=== PATIENT | female | born 1970 | race Two or more races ===

== ENCOUNTER 2017-08-19 22:59 | Inpatient (IN) | payer SELFPAY ==
[2017-08-20] MEDS: IV NORMAL SALINE 1000ML BAG 1,000 ML IV ×7 (00:22→04:26)
[2017-08-20 00:47] LABS: BILIRUBIN,URINE NEGATIVE (NEG); CLARITY,URINE CLEAR; COLOR,URINE RED; GLUCOSE,URINE NEGATIVE (NEG); NITRITE,URINE NEGATIVE (NEG); PROTEIN,URINE 100 mg/dL (NEG-TRACE)
[2017-08-20 00:55] LABS: BACTERIA,URINE FEW /HPF (0-FEW); HYALINE CASTS, URINE FEW /HPF; RBC,URINE TNTC /HPF (0-2); SQUAMOUS EPITHELIAL CELL,UR FEW /LPF
[2017-08-20 00:59] LABS: ADD MAN DIFF? NO
[2017-08-20 01:04] LABS: BASO % 0 % (0-3); EOS # 0.1 x10^3/uL (0.0-0.7); EOS % 1 % (0-3); HEMATOCRIT 38.6 % (36.0-47.0); HEMOGLOBIN 13.2 g/dL (12.0-15.5); LYMPH # 2.1 x10^3/uL (1.0-4.8); LYMPH % 20 % (24-48); MEAN CORPUSCULAR HEMOGLOBIN 30 pg (25-35); MEAN CORPUSCULAR HGB CONC 34 g/dL (31-37); MEAN CORPUSCULAR VOLUME 88 fL (79-100); MONO # 0.7 x10^3/uL (0.0-1.1); MONO % 7 % (0-9); NEUT # 7.6 x10^3uL (1.8-7.7); NEUT % 72 % (31-73); PLATELET COUNT 214 x10^3/uL (140-400); RED BLOOD COUNT 4.41 x10^6/uL (3.50-5.40); RED CELL DISTRIBUTION WIDTH 13.3 % (11.5-14.5); WHITE BLOOD COUNT 10.6 x10^3/uL (4.0-11.0)
[2017-08-20 01:16] LABS: ANION GAP 6 (6-14); BLOOD UREA NITROGEN 14 mg/dL (7-20); CALCIUM 8.3 mg/dL (8.5-10.1); CARBON DIOXIDE 28 mmol/L (21-32); CHLORIDE 106 mmol/L (98-107); CREATININE 0.7 mg/dL (0.6-1.0); GFR 90.5; GLUCOSE 113 mg/dL (70-99); SODIUM 140 mmol/L (136-145)
[2017-08-20 01:27] LABS: TROPONINI < 0.017 ng/mL (0.000-0.055)
[2017-08-20 01:31] LABS: THYROID STIM HORMONE (TSH) 1.911 uIU/mL (0.358-3.74)
[2017-08-20] MEDS: HYDROcodone/APAP 5/325MG 1 TAB TABLET PO (01:43)
[2017-08-20 07:30] LABS: TROPONINI < 0.017 ng/mL (0.000-0.055)
[2017-08-20 09:57] LABS: TROPONINI < 0.017 ng/mL (0.000-0.055)
[2017-08-20] MEDS: ONDANSETRON PF 4 MG/2 ML VIAL. IV (11:47)
[2017-08-20] MEDS: MORPHINE SULFATE 4 MG/ML DISP.SYRIN. IV (11:47)
[2017-08-20 11:49] LABS: CHOLESTEROL 129 mg/dL (0-200); HDLC 27 mg/dL (40-60); LDLC 83 mg/dL (0-100); NON-HDL CHOLESTEROL 102 mg/dL (0-129); TRIGLYCERIDES 94 mg/dL (0-150); VLDLC 19 mg/dL (0-40)
[2017-08-20 11:50] LABS: CHOLESTEROL/HDL RATIO 4.8
[2017-08-21] MEDS: HYDROcodone/APAP 5/325MG 1 TAB TABLET PO ×2 (00:43→16:22)
[2017-08-21 04:11] LABS: ADD MAN DIFF? NO
[2017-08-21 04:42] LABS: BASO % 1 % (0-3); EOS # 0.2 x10^3/uL (0.0-0.7); EOS % 2 % (0-3); HEMATOCRIT 36.3 % (36.0-47.0); HEMOGLOBIN 12.2 g/dL (12.0-15.5); LYMPH # 3.1 x10^3/uL (1.0-4.8); LYMPH % 40 % (24-48); MEAN CORPUSCULAR HEMOGLOBIN 30 pg (25-35); MEAN CORPUSCULAR HGB CONC 34 g/dL (31-37); MEAN CORPUSCULAR VOLUME 88 fL (79-100); MONO # 0.6 x10^3/uL (0.0-1.1); MONO % 8 % (0-9); NEUT # 3.8 x10^3uL (1.8-7.7); NEUT % 50 % (31-73); PLATELET COUNT 185 x10^3/uL (140-400); RED BLOOD COUNT 4.13 x10^6/uL (3.50-5.40); RED CELL DISTRIBUTION WIDTH 13.9 % (11.5-14.5); WHITE BLOOD COUNT 7.7 x10^3/uL (4.0-11.0)
[2017-08-21 04:48] LABS: ANION GAP 8 (6-14); BLOOD UREA NITROGEN 9 mg/dL (7-20); CALCIUM 8.7 mg/dL (8.5-10.1); CARBON DIOXIDE 25 mmol/L (21-32); CHLORIDE 107 mmol/L (98-107); CREATININE 0.6 mg/dL (0.6-1.0); GFR 108.1; GLUCOSE 109 mg/dL (70-99); POTASSIUM 3.6 mmol/L (3.5-5.1); SODIUM 140 mmol/L (136-145)
== END 2017-08-21 20:39 | disposition home or self-care (01) | DRG 563 ==
LOC: ER 22:59 → 4 NORTH 08-20 02:45
DX: S82.51XA Displaced fracture of medial malleolus of right tibia, initial encounter for closed fracture (principal); E66.9 Obesity, unspecified; S51.011A Laceration without foreign body of right elbow, initial encounter; I95.1 Orthostatic hypotension; S82.831A Other fracture of upper and lower end of right fibula, initial encounter for closed fracture; F17.210 Nicotine dependence, cigarettes, uncomplicated; W18.39XA Other fall on same level, initial encounter; Z68.37 Body mass index [BMI] 37.0-37.9, adult; Y93.89 Activity, other specified; Y92.89 Other specified places as the place of occurrence of the external cause; Y99.8 Other external cause status
CPT/HCPCS: 29515; 36415; 70450; 71045; 73590; 73610; 80048; 80061; 81001; 84443; 84484; 85025; 93005; 93306; 93880; 96360; 97116-GP; 99285; 99285-25; J2270; J2405; J7030

== ENCOUNTER 2019-01-04 22:35 | Emergency (ER) | payer SELFPAY ==
[~2019-01-04] VITALS: Ht 172.7 cm; Wt 99.8 kg
[~2019-01-04 22:35] MED LIST: IBUP-1027 PO; OXYC1TAB15 PO
[2019-01-04 23:20] VITALS: BP 153/84
[2019-01-05] MEDS ORDERED: CYCL10TA2 PO (00:25)
--- NOTE | 2019-01-05 00:26 | PHYS DOC ---
Past Medical History Past Medical History: No Pertinent History (MARIA L RENAE APRN) Past Surgical History: No Surgical History (MARIA L RENAE APRN) Alcohol Use: None Drug Use: None (MARIA L RENAE APRN) Adult General Chief Complaint Chief Complaint: LOWER EXT PAIN HPI HPI Patient is a 48 year old female, accompanied by her daughter, with complaints of left low back pain that increases with movement and shoots to her left buttock and thigh for the last week. PT denies any injury, saddle anesthesia, numbness, tingling, weakness, dysuria, or bowel/bladder incontinence. She rates the pain a 8/10 at rest and states the pain shoots to a 10 with movement. She has been taking diclofenac at home for the pain. (MARIA L RENAE APRN) Review of Systems Review of Systems Constitutional: Denies fever or chills [] Eyes: Denies change in visual acuity, redness, or eye pain [] HENT: Denies nasal congestion or sore throat [] Respiratory: Denies cough or shortness of breath [] Cardiovascular: No additional information not addressed in HPI [] GI: Denies abdominal pain, nausea, vomiting, bloody stools or diarrhea [] : Denies dysuria or hematuria [] Musculoskeletal: see HPI Integument: Denies rash or skin lesions [] Neurologic: Denies headache, focal weakness or sensory changes [] Complete systems were reviewed and found to be within normal limits, except as documented in this note. (MARIA L RENAE APRN) Current Medications Current Medications Current Medications Medications (Trade) Dose Ordered Sig/Bijan Start Time Stop Time Status Last Admin Dose Admin Dexamethasone Sodium Phosphate (Decadron) 10 mg 1X ONCE 01/05/19 00:30 01/05/19 00:31 DC 01/05/19 00:32 10 MG Orphenadrine Citrate (Norflex) 60 mg 1X ONCE 01/05/19 00:30 01/05/19 00:31 DC 01/05/19 00:32 60 MG (ERIKA PAINTING DO) Allergies Allergies Allergies Coded Allergies Type Severity Reaction Last Updated Verified No Known Drug Allergies 08/20/17 No (ERIKA PAINTING DO) Physical Exam Physical Exam Constitutional: Well developed, well nourished, no acute distress, non-toxic appearance, obese. [] HENT: Normocephalic, atraumatic, bilateral external ears normal, nose normal. [] Eyes: PERRLA, EOMI, conjunctiva normal, no discharge. [] Neck: Normal range of motion, no stridor. [] Cardiovascular:Heart rate regular rhythm Lungs & Thorax: Respirations even and unlabored, no retractions, no respiratory distress Skin: Warm, dry, no erythema, no rash. [] Back: Left lumbar paraspinal tenderness to palpation, increased left lower back pain with straight leg lift of left leg., no CVA tenderness. [] Extremities: No cyanosis, no clubbing, ROM intact, no edema. [] Neurologic: Alert and oriented X 3, normal motor function, normal sensory function, no focal deficits noted. [] Psychologic: Affect normal, judgement normal, mood normal. [] (MARIA L RENAE APRN) Current Patient Data Vital Signs Vital Signs Date Time Temp Pulse Resp B/P (MAP) Pulse Ox O2 Delivery O2 Flow Rate FiO2 01/04/19 23:20 97.5 57 16 153/84 (107) 98 Room Air 97.5 (PAINTING,ERIKA Aguilar DO) EKG EKG [] (MARIA L RENAE APRN) Radiology/Procedures Radiology/Procedures [] (MARIA L RENAE APRN) Course & Med Decision Making Course & Med Decision Making Pertinent Labs and Imaging studies reviewed. (See chart for details) [] (MARIA L RENAE APRN) Dragon Disclaimer Dragon Disclaimer This electronic medical record was generated, in whole or in part, using a voice recognition dictation system. (MARIA L RENAE APRN) Departure Departure Impression: Primary Impression: Left paraspinal back pain Additional Impression: Left-sided low back pain with sciatica Disposition: 01 HOME, SELF-CARE Condition: STABLE Referrals: NO PCP (PCP) Patient Instructions: Sciatica with [facility] Additional Instructions: Fill the prescriptions and use them as directed. Follow the exercises given in urine discharge paperwork. Apply heat or ice to sore areas as needed for comfort. Follow-up with her primary care doctor if symptoms persist, return to the ER symptoms worsen Scripts Cyclobenzaprine Hcl (CYCLOBENZAPRINE HCL) 10 Mg Tablet 1 TAB PO TID PRN for PAIN for 10 Days, #30 TAB 0 Refills Prov: MARIA L RENAE APRN 01/05/19 Attending Signature Attending Signature I have reviewed the PA/FLAMER SEALER's note and plan of care. I was available for consultation as needed during the patient's visit in the emergency department. I agree with the clinical impression, plan, and disposition. (ERIKA PAINTING DO) Problem Qualifiers Additional Impression: Left-sided low back pain with sciatica Chronicity: acute Sciatica laterality: sciatica of left side Qualified Codes: M54.42 - Lumbago with sciatica, left side MARIA L RENAE APRN Jan 05, 2019 00:26 ERIKA PAINTING DO Jan 05, 2019 06:17
[2019-01-05] MEDS ORDERED: DEXAMETHASONE SOD PHOS 20 MG/5 ML VIAL. IM ONE (00:30)
[2019-01-05] MEDS ORDERED: ORPHENADRINE CITRATE 60 MG/2 ML VIAL. IM ONE (00:30)
== END 2019-01-05 00:35 | disposition home or self-care (01) ==
LOC: ER 22:35
DX: M54.42 Lumbago with sciatica, left side (principal)
CPT/HCPCS: 96372; 99284; J1100; J2360

== ENCOUNTER 2019-01-07 14:24 | Emergency (ER) | payer SELFPAY ==
[~2019-01-07] VITALS: Ht 162.6 cm; Wt 99.8 kg
[~2019-01-07 14:24] MED LIST changes: +CYCL10TA2 PO
[2019-01-07 14:39] VITALS: BP 155/93
[2019-01-07] MEDS ORDERED: MORPHINE SULFATE 10 MG/ML VIAL. IM ONE (14:45)
--- NOTE | 2019-01-07 14:49 | PHYS DOC ---
Past Medical History Past Medical History: No Pertinent History Past Surgical History: No Surgical History Alcohol Use: None Drug Use: None Adult General Chief Complaint Chief Complaint: HIP PAIN HPI HPI Patient is a 48 year old female that presents with left-sided back pain that radiates left leg. The patient was seen for the same complaint several days ago. Rates her pain as 8 out of 10 in severity. The patient states she has been taking Flexeril however that has not been completely helping so she didn't take it today and came to the ER. Emergency Room Technician # [id number] Review of Systems Review of Systems Constitutional: Denies fever or chills [] Eyes: Denies change in visual acuity, redness, or eye pain [] HENT: Denies nasal congestion or sore throat [] Respiratory: Denies cough or shortness of breath [] Cardiovascular: No additional information not addressed in HPI [] GI: Denies abdominal pain, nausea, vomiting, bloody stools or diarrhea [] : Denies dysuria or hematuria [] Musculoskeletal: Reports left sided lower back pain radiating down the left leg. Integument: Denies rash or skin lesions [] Neurologic: Denies headache, focal weakness or sensory changes [] Endocrine: Denies polyuria or polydipsia [] Complete systems were reviewed and found to be within normal limits, except as documented in this note. Allergies Allergies Allergies Coded Allergies Type Severity Reaction Last Updated Verified No Known Drug Allergies 08/20/17 No Physical Exam Physical Exam Constitutional: Well developed, well nourished, no acute distress, non-toxic appearance. [] HENT: Normocephalic, atraumatic, bilateral external ears normal, oropharynx moist, no oral exudates, nose normal. [] Eyes: PERRLA, EOMI, conjunctiva normal, no discharge. [] Neck: Normal range of motion, no tenderness, supple, no stridor. [] Skin: Warm, dry, no erythema, no rash. [] Back: Tenderness on palpation left lower back. Extremities: No tenderness, no cyanosis, no clubbing, ROM intact, no edema. [] Neurologic: Alert and oriented X 3, normal motor function, normal sensory function, no focal deficits noted. [] Psychologic: Affect normal, judgement normal, mood normal. [] EKG EKG [] Radiology/Procedures Radiology/Procedures [] Course & Med Decision Making Course & Med Decision Making Pertinent Labs and Imaging studies reviewed. (See chart for details) Discussed with patient that she needs to follow up with primary care doctor. Will give 1 dose of morphine and d/c home. Patient states she has someone that can pick her up. Ciro Disclaimer Ciro Disclaimer This electronic medical record was generated, in whole or in part, using a voice recognition dictation system. Departure Departure Impression: Primary Impression: Left-sided low back pain with sciatica Disposition: HOME, SELF-CARE Condition: STABLE Referrals: NO PCP (PCP) Patient Instructions: Sciatica Additional Instructions: Thank you for visiting [facility]. We appreciate you trusting us with your care. If any additional problems come up don't hesitate to return to visit us. Please follow up with your primary care provider so they can plan additional care if needed and know about the problem that you had. If symptoms worsen come back to the Emergency Department. Any concerning symptoms that start such as chest pain, shortness of air, weakness or numbness on one side of the body, running high fevers or any other concerning symptoms return to the ER. ERIKA SCHROEDER APRN Jan 07, 2019 14:49
== END 2019-01-07 14:58 | disposition home or self-care (01) ==
LOC: ER 14:24
DX: M54.42 Lumbago with sciatica, left side (principal)
CPT/HCPCS: 96372; 99283; J2270